=== PATIENT | male | born 1995 | race Two or more races ===

== ENCOUNTER 2017-11-26 02:48 | Emergency (ER) | payer SELFPAY ==
[2017-11-26 02:58] VITALS: O2SAT 95
[2017-11-26] MEDS ORDERED: Lidocaine 1% Inj (20ml) IJ STA (03:36)
[2017-11-26] MEDS ORDERED: Tdap Vaccine 0.5 ml Vial (10-64 yrs) IM ONE ×2 (04:06→04:11)
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
[2017-11-26 06:52] VITALS: BP 130/68; PULSE 79; RESP 16; TEMP 97.4
== END 2017-11-26 06:47 | disposition home or self-care (01) ==
LOC: H.ER 02:48
DX: F10.129 Alcohol abuse with intoxication, unspecified (principal); S09.90XA Unspecified injury of head, initial encounter; S01.81XA Laceration without foreign body of other part of head, initial encounter; W19.XXXA Unspecified fall, initial encounter; Y92.89 Other specified places as the place of occurrence of the external cause
CPT/HCPCS: 12011; 70450; 70486; 82948; 90471; 90715; 99285; G0480